=== PATIENT | male | born 1985 | race American Indian/Alaskan Native ===

== ENCOUNTER 2017-07-20 18:02 | Emergency (ER) | payer SELFPAY ==
[2017-07-20 18:12] VITALS: BP 153/97
== END 2017-07-20 22:00 | disposition left against medical advice (07) ==
LOC: ED 18:02
DX: J11.1 Influenza due to unidentified influenza virus with other respiratory manifestations (principal); Z53.21 Procedure and treatment not carried out due to patient leaving prior to being seen by health care provider

== ENCOUNTER 2021-05-17 05:47 | Emergency (ER) | payer MEDICARE ==
[2021-05-17 06:54] LABS: Basophils # (Auto) 0.1 K/mm3 (0.0-0.1); Basophils % (Auto) 0.9 % (0.0-1.8); Eosinophils # (Auto) 0.9 K/mm3 (0.0-0.4); Hematocrit 35.5 % (35.5-45.6); Lymphocytes # (Auto) 2.6 K/mm3 (1.2-5.4); Lymphocytes % (Auto) 20.9 % (13.4-35.0); Mean Corpuscular HGB Conc 31 % (32-34); Mean Corpuscular Volume 86 fl (84-94); Monocytes # (Auto) 1.3 K/mm3 (0.0-0.8); Monocytes % (Auto) 10.8 % (0.0-7.3); Platelet Count 295 K/mm3 (140-440); Red Blood Count 4.14 M/mm3 (3.65-5.03); Red Cell Distribution Width 18.7 % (13.2-15.2)
--- NOTE | 2021-05-17 06:55 | Emergency Department Report ---
ED General Adult HPI - General Chief complaint: Recheck/Abnormal Lab/Rx Stated complaint: LOW POTASSIUM Time Seen by Provider: 05/17/21 06:23 Source: patient Mode of arrival: Ambulatory Limitations: No Limitations - History of Present Illness Initial comments: 35-year-old male with a past medical history hypertension, ESRD on dialysis Tuesday, Tuesday presents to the hospital with complaints of feeling like his potassium is low. Patient admits he does not know if it is low or high. He states he has felt this way in the past due to previous potassium abnormalities. Complains of generalized paresthesias and "feeling bad" with shortness of breath. Patient recent started a new job and therefore only received one half of his scheduled dialysis on Tuesday or Tuesday. This prior Tuesday he did receive a complete dialysis session. He also has a secondary complaint of pain secondary to a cyst on his scrotum for the past 5 days. Pain is worse with palpation. No fever or drainage reported. Patient had a similar cyst removed surgically at [facility] and states that pathology revealed that it was "a cow cyst". Patient's mechanical laboratory technician is Dr. Goldberg associated with [facility] - Related Data Home Medications Medication Instructions Recorded Confirmed Last Taken amLODIPine 10 mg PO DAILY 12/06/19 12/06/19 12/05/19 carvediloL [Coreg] 25 mg PO BID 12/06/19 12/06/19 12/05/19 Previous Rx's Medication Instructions Recorded Last Taken Type Apixaban [Eliquis] 2.5 mg PO Q12H #14 12/13/19 Unknown Rx predniSONE 10 mg PO .TAPER #21 tab 12/13/19 Unknown Rx Allergies Allergy/AdvReac Type Severity Reaction Status Date / Time No Known Allergies Allergy Verified 12/06/19 01:43 ED Review of Systems ROS: Stated complaint: LOW POTASSIUM Other details as noted in HPI Comment: All other systems reviewed and negative ED Past Medical Hx - Past Medical History Previous Medical History?: Yes Hx Hypertension: Yes Hx Renal Disease: Yes Additional medical history: Kidney failure with kidney transplat, COVID 19 - Surgical History Past Surgical History?: Yes Additional Surgical History: Kidney transplant - Social History Smoking Status: Never Smoker Substance Use Type: Alcohol - Medications Home Medications: Home Medications Medication Instructions Recorded Confirmed Last Taken Type amLODIPine 10 mg PO DAILY 12/06/19 12/06/19 12/05/19 History carvediloL [Coreg] 25 mg PO BID 12/06/19 12/06/19 12/05/19 History Apixaban [Eliquis] 2.5 mg PO Q12H #14 12/13/19 Unknown Rx predniSONE 10 mg PO .TAPER #21 tab 12/13/19 Unknown Rx ED Physical Exam - General Limitations: No Limitations - Other Other exam information: General: No acute distress Head: Atraumatic Eyes: normal appearance ENT: Moist mucous membranes Neck: Normal appearance, no midline tenderness Chest: Clear to auscultation bilaterally, right chest wall dialysis port CV: Regular rate and rhythm Abdomen: Soft, normal bowel sounds, nontender, nondistended, no rebound or guarding : No penile lesions, no testicular tenderness. Patient has a tender whitish approximately 3 mm tender papule/swelling at middle posterior inferior aspect of his scrotum without erythema, warmth, or drainage. ? Sebaceous cyst Back: Normal inspection Extremity: Normal inspection, full range of motion Neuro: Alert O x 3, no facial asymmetry, speech clear, no gross motor sensory deficit Psych: Appropriate behavior Skin: No rash ED Course Vital Signs 05/17/21 05/17/21 05:52 09:17 Temperature 98.6 F Pulse Rate 109 H 107 H Respiratory 18 16 Rate Blood Pressure 175/127 Blood Pressure 198/121 [Left] O2 Sat by Pulse 98 97 Oximetry ED Medical Decision Making - Lab Data Result diagrams: 05/17/21 06:41 05/17/21 06:41 Lab Results 05/17/21 05/17/21 05/17/21 Range/Units 06:41 06:41 06:41 WBC 12.4 H (4.5-11.0) K/mm3 RBC 4.14 (3.65-5.03) M/mm3 Hgb 11.0 L (11.8-15.2) gm/dl Hct 35.5 (35.5-45.6) % MCV 86 (84-94) fl MCH 27 L (28-32) pg MCHC 31 L (32-34) % RDW 18.7 H (13.2-15.2) % Plt Count 295 (140-440) K/mm3 Lymph % (Auto) 20.9 (13.4-35.0) % [place] % (Auto) 10.8 H (0.0-7.3) % Eos % (Auto) 7.0 H (0.0-4.3) % Baso % (Auto) 0.9 (0.0-1.8) % Lymph # (Auto) 2.6 (1.2-5.4) K/mm3 [place] # (Auto) 1.3 H (0.0-0.8) K/mm3 Eos # (Auto) 0.9 H (0.0-0.4) K/mm3 Baso # (Auto) 0.1 (0.0-0.1) K/mm3 Seg Neutrophils % 60.4 (40.0-70.0) % Seg Neutrophils # 7.5 (1.8-7.7) K/mm3 Sodium 141 (137-145) mmol/L Potassium 5.4 H (3.6-5.0) mmol/L Chloride 102.6 (98-107) mmol/L Carbon Dioxide 21 L (22-30) mmol/L Anion Gap 23 mmol/L BUN 52 H (9-20) mg/dL Creatinine 18.3 H (0.8-1.3) mg/dL Estimated GFR 4 ml/min BUN/Creatinine Ratio 3 % Glucose 94 (75-100) mg/dL Calcium 9.4 (8.4-10.2) mg/dL Magnesium 2.40 H (1.7-2.3) mg/dL Total Bilirubin 0.30 (0.1-1.2) mg/dL AST 12 (5-40) units/L ALT 7 (7-56) units/L Alkaline Phosphatase 64 (35-129) units/L Total Protein 8.4 H (6.3-8.2) g/dL Albumin 4.6 (3.9-5) g/dL Albumin/Globulin Ratio 1.2 % - EKG Data -: EKG Interpreted by Pr EKG shows normal: sinus rhythm, intervals (intervals normal), QRS complexes (qrsd 91), ST-T waves (peak t waves) Rate: tachycardia (115) - Radiology Data Radiology results: report reviewed (cxr: atelectasis) - Medical Decision Making 35-year-old male presents to the hospital with dialysis noncompliance and mild hyperkalemia. EKG findings of hyperkalemia noted. Patient received Kayexalate. Clonidine provided for hypertension. Patient complains of a small painful scrotal lump similar to his previous cyst that was surgically removed at [facility]. No purulent drainage, erythema, or warmth noted. Case discussed with nephrology on-call Dr. River who recommends admission for dialysis pt eloped after admission Critical Care Time: No Critical care attestation.: If time is entered above; I have spent that time in minutes in the direct care of this critically ill patient, excluding procedure time. ED Disposition Clinical Impression: ESRD (end stage renal disease) on dialysis, Noncompliance of patient with renal dialysis, Hyperkalemia, Scrotal cyst Disposition: 07 LEFT AWOL/ELOPED Is pt being admited?: No Condition: Stable Referrals: PRIMARY CARE, [Primary Care Provider] - 3-5 Days Time of Disposition: 09:11 (DR Lyons )
[2021-05-17 07:13] LABS: Albumin 4.6 g/dL (3.9-5); Calcium 9.4 mg/dL (8.4-10.2)
[2021-05-17] MEDS ORDERED: SODIUM POLYSTYRENE 15 GM/60 ML ORAL LIQD PO ONE (07:33)
--- NOTE | 2021-05-17 07:36 | XRay Report ---
XR chest routine 2V INDICATION / CLINICAL INFORMATION: sob. COMPARISON: 12/06/2019 FINDINGS: SUPPORT DEVICES: Stable right IJ central venous catheter. HEART /PULMONARY VASCULATURE: No significant abnormality. LUNGS / PLEURA: Low lung volumes are present. Mild bibasilar opacities are favored to reflect atelect asis. No sizable pleural effusion. No pneumothorax. ADDITIONAL FINDINGS: No significant additional findings. IMPRESSION: Low lung volumes with bibasilar opacities, likely reflecting volume loss. Otherwise, no acute chest p rocess. Signer Name: Basil Ochoa MD Signed: 05/17/2021 7:31 AM Workstation Name: [id number]
[2021-05-17] MEDS ORDERED: cloNIDine 0.1 MG TAB PO ONE (09:01)
[2021-05-17 09:18] VITALS: BP 198/121
--- NOTE | 2021-05-17 09:43 | Electrocardiograph Report ---
[facility] Test Date: 2021-05-17 Test Time: 06:45:38 Pat Name: KIARA BROWN Department: Room: Gender: M Hospice Coordinator: : 1985 Requested By: JANET DIOR Order Number: [id number] Reading MD: Deo Coffey Measurements Intervals Rose Rate: 115 P: 59 MA: 115 QRS: 69 QRSD: 91 T: 70 QT: 352 QTc: 486 Interpretive Statements Sinus tachycardia Probable left atrial enlargement Probable left ventricular hypertrophy nonspecific st-t No previous ECG available for comparison Electronically Signed On 05-17-2021 9:42:50 EST by Deo Coffey
--- NOTE | 2021-05-17 10:26 | History and Physical Report ---
History of Present Illness Date of examination: 05/17/21 (Patient left AMA before exam) Date of admission: 05/17/2021 Chief complaint: Concern for potassium abnormalities History of present illness: Patient is a 35-year-old male with past medical history of uncontrolled hypertension and ESRD on hemodialysis (MWF) who presented with concerns for potassium abnormalities. Per chart review, the patient endorsed feeling uneasiness that is typically associated with hyperkalemia and/or hypokalemia. The patient endorsed missing multiple sessions of hemodialysis. In the ED the patient was found to have a blood pressure of 198/121, tachycardic to 110, and a potassium of 5.4. The patient was admitted for need for hemodialysis. The patient eloped from the hospital before being examined. Past History Past Medical History: ESRD (On hemodialysis) Past Surgical History: No surgical history (Unable to assess as patient left AMA) Social history: no significant social history (Unable to assess as patient left AMA) Family history: no significant family history (Unable to assess as patient left AMA) Medications and Allergies Allergies Allergy/AdvReac Type Severity Reaction Status Date / Time No Known Allergies Allergy Verified 12/06/19 01:43 Home Medications Medication Instructions Recorded Confirmed Last Taken Type amLODIPine 10 mg PO DAILY 12/06/19 12/06/19 12/05/19 History carvediloL [Coreg] 25 mg PO BID 12/06/19 12/06/19 12/05/19 History Apixaban [Eliquis] 2.5 mg PO Q12H #14 12/13/19 Unknown Rx predniSONE 10 mg PO .TAPER #21 tab 12/13/19 Unknown Rx Active Meds: Active Medications Acetaminophen (Acetaminophen 325 Mg Tab) 650 mg PO Q4H PRN PRN Reason: Pain MILD(1-3)/Fever >100.5/FOX Carvedilol (Carvedilol 6.25 Mg Tab) 12.5 mg PO BID KD Heparin Sodium (Porcine) (Heparin 5,000 Unit/1 Ml Vial) 5,000 unit SUB-Q Q8HR KD Hydralazine HCl (Hydralazine 25 Mg Tab) 50 mg PO BID KD Morphine Sulfate (Morphine 4 Mg/1 Ml Inj) 2 mg IV Q4H PRN PRN Reason: Pain , Severe (7-10) Nifedipine (Nifedipine Xl 60 Mg Tab) 60 mg PO DAILY KD Ondansetron HCl (Ondansetron 4 Mg/2 Ml Inj) 4 mg IV Q8H PRN PRN Reason: Nausea And Vomiting Oxycodone/Acetaminophen (Oxycodone /Acetaminophen 5-325mg Tab) 1 tab PO Q6H PRN PRN Reason: Pain, Moderate (4-6) Sodium Chloride (Sodium Chloride 0.9% 10 Ml Flush Syringe) 10 ml IV BID KD Sodium Chloride (Sodium Chloride 0.9% 10 Ml Flush Syringe) 10 ml IV PRN PRN PRN Reason: LINE FLUSH Review of Systems All systems: negative (Unable to assess as patient left AMA) Exam - Physical Exam Narrative exam: Unable to assess as patient left AMA - Constitutional Vitals: Temp Pulse Resp BP Pulse Ox 98.6 F 107 H 16 198/121 97 05/17/21 05:52 05/17/21 09:17 05/17/21 09:17 05/17/21 09:17 05/17/21 09:17 Results - Labs CBC & Chem 7: 05/17/21 06:41 05/17/21 06:41 Labs: Laboratory Last Values WBC 12.4 K/mm3 (4.5-11.0) H 05/17/21 06:41 RBC 4.14 M/mm3 (3.65-5.03) 05/17/21 06:41 Hgb 11.0 gm/dl (11.8-15.2) L 05/17/21 06:41 Hct 35.5 % (35.5-45.6) 05/17/21 06:41 MCV 86 fl (84-94) 05/17/21 06:41 MCH 27 pg (28-32) L 05/17/21 06:41 MCHC 31 % (32-34) L 05/17/21 06:41 RDW 18.7 % (13.2-15.2) H 05/17/21 06:41 Plt Count 295 K/mm3 (140-440) 05/17/21 06:41 Lymph % (Auto) 20.9 % (13.4-35.0) 05/17/21 06:41 [place] % (Auto) 10.8 % (0.0-7.3) H 05/17/21 06:41 Eos % (Auto) 7.0 % (0.0-4.3) H 05/17/21 06:41 Baso % (Auto) 0.9 % (0.0-1.8) 05/17/21 06:41 Lymph # (Auto) 2.6 K/mm3 (1.2-5.4) 05/17/21 06:41 [place] # (Auto) 1.3 K/mm3 (0.0-0.8) H 05/17/21 06:41 Eos # (Auto) 0.9 K/mm3 (0.0-0.4) H 05/17/21 06:41 Baso # (Auto) 0.1 K/mm3 (0.0-0.1) 05/17/21 06:41 Seg Neutrophils % 60.4 % (40.0-70.0) 05/17/21 06:41 Seg Neutrophils # 7.5 K/mm3 (1.8-7.7) 05/17/21 06:41 Sodium 141 mmol/L (137-145) 05/17/21 06:41 Potassium 5.4 mmol/L (3.6-5.0) H 05/17/21 06:41 Chloride 102.6 mmol/L (98-107) 05/17/21 06:41 Carbon Dioxide 21 mmol/L (22-30) L 05/17/21 06:41 Anion Gap 23 mmol/L 05/17/21 06:41 BUN 52 mg/dL (9-20) H 05/17/21 06:41 Creatinine 18.3 mg/dL (0.8-1.3) H 05/17/21 06:41 Estimated GFR 4 ml/min 05/17/21 06:41 BUN/Creatinine Ratio 3 % 05/17/21 06:41 Glucose 94 mg/dL (75-100) 05/17/21 06:41 Calcium 9.4 mg/dL (8.4-10.2) 05/17/21 06:41 Magnesium 2.40 mg/dL (1.7-2.3) H 05/17/21 06:41 Total Bilirubin 0.30 mg/dL (0.1-1.2) 05/17/21 06:41 AST 12 units/L (5-40) 05/17/21 06:41 ALT 7 units/L (7-56) 05/17/21 06:41 Alkaline Phosphatase 64 units/L (35-129) 05/17/21 06:41 Total Protein 8.4 g/dL (6.3-8.2) H 05/17/21 06:41 Albumin 4.6 g/dL (3.9-5) 05/17/21 06:41 Albumin/Globulin Ratio 1.2 % 05/17/21 06:41 Assessment and Plan Assessment and plan: Unable to assess as patient left AMA. Advance Directives: No VTE prophylaxis?: Chemical Plan of care discussed with patient/family: No
[2021-05-17] MEDS ORDERED: MORPHINE 4 MG/1 ML INJ IV PRN (11:00)
[2021-05-17] MEDS ORDERED: carvediloL 6.25 MG TAB PO SCH (11:00)
[2021-05-17] MEDS ORDERED: ONDANSETRON 4 MG/2 ML INJ IV PRN (11:00)
[2021-05-17] MEDS ORDERED: ACETAMINOPHEN 325 MG TAB PO PRN (11:00)
[2021-05-17] MEDS ORDERED: hydrALAZINE 25 MG TAB PO SCH (11:00)
[2021-05-17] MEDS ORDERED: oxyCODONE /ACETAMINOPHEN 5-325MG TAB PO PRN (11:00)
[2021-05-17] MEDS ORDERED: NIFEdipine XL 60 MG TAB PO SCH (11:00)
--- NOTE | 2021-05-17 13:57 | Discharge Summary ---
Providers - Providers Date of Admission: 05/17/2021 Date of discharge: 05/17/21 Attending physician: Dr. Gabriela Callaway 05/17/21 09:05 Consult to Physician [CONS] Urgent Comment: Consulting Provider: SYD CABA Physician Instructions: Reason For Exam: esrd, hyperkalemia Primary care physician: RO[facility] Hospitalization Reason for admission: Need for emergent hemodialysis Condition: Stable Pertinent studies: None. Procedures: None. Hospital course: Patient is a 35-year-old male with past medical history of uncontrolled hypertension and ESRD on hemodialysis (MWF) who presented with concerns for potassium abnormalities. Per chart review, the patient endorsed feeling uneasiness that is typically associated with hyperkalemia and/or hypokalemia. The patient endorsed missing multiple sessions of hemodialysis. In the ED the patient was found to have a blood pressure of 198/121, tachycardic to 110, and a potassium of 5.4. The patient was admitted for need for hemodialysis. The patient eloped from the hospital before being examined. Disposition: 07 LEFT AWOL/ELOPED Final Discharge Diagnosis (Prints w/discharge instructions): ESRD on hemodialysis, uncontrolled hypertension, hyperkalemia, tachycardia Time spent for discharge: 20 min Core Measure Documentation - Palliative Care Palliative Care/ Comfort Measures: Not Applicable - Core Measures Any of the following diagnoses?: none - VTE Discharge Requirements Deep Vein Thrombosis/Pulmonary Embolism Present on Admission: No Has pt received <5 days of overlap therapy or INR<2.0: No Anticoagulant overlap therapy prescribed at discharge: No Contraindication No Overlap Therapy order at DC: Not Indicated - Acute SC Discharge Requirements Aspirin at discharge: No Reason for no aspirin on DC: Medical contraindication (Not indicated) COLBY/ARB for LVSD if EF <40%: Not Applicable Reason for no COLBY/ARB: Renal impairment Beta jannet at discharge: No Reason for no beta jannet on DC: Patient refusal (Patient left AMA) Statin for LDL = or >100 mg/dl on DC: Not Applicable - Heart Failure Discharge Requirements COLBY/ARB for LVSD if EF <40%: Not Applicable Beta jannet at discharge: No Reason for no beta jannet on DC: Patient refusal (Patient left AMA) - Stroke Discharge Requirements Statin for LDL = or >70 mg/dl on DC: Not Applicable Anticoag for atrial fib/atrial flutter: Not Applicable Antithrombotic for ischemic stroke: No Reason for no antithrombotic on DC: Not Indicated Exam - Physical Exam Narrative exam: Unable to assess as patient left AMA - Constitutional Vitals: Temp Pulse Resp BP Pulse Ox 98.6 F 107 H 16 198/121 97 05/17/21 05:52 05/17/21 09:17 05/17/21 09:17 05/17/21 09:17 05/17/21 09:17 Plan Activity: no restrictions Diet: renal Care Plan Goals: Patient left AMA. Assessment: Patient is a 35-year-old male with past medical history of uncontrolled hypertension and ESRD on hemodialysis (MWF) who presented with concerns for pota ssium abnormalities. Per chart review, the patient endorsed feeling uneasiness that is typically associated with hyperkalemia and/or hypokalemia. The patient endorsed missing multiple sessions of hemodialysis. In the ED the patient was found to have a blood pressure of 198/121, tachycardic to 110, and a potassium of 5.4. The patient was admitted for need for hemodialysis. The patient eloped from the hospital before being examined. Follow up with: OANH CHEW MD [Primary Care Provider] - 3-5 Days
[2021-05-17] MEDS ORDERED: HEPARIN 5,000 UNIT/1 ML VIAL SUB-Q SCH (14:00)
== END 2021-05-17 10:35 | disposition left against medical advice (07) ==
LOC: ED 05:47
DX: I12.0 Hypertensive chronic kidney disease with stage 5 chronic kidney disease or end stage renal disease (principal); N18.6 End stage renal disease; Z99.2 Dependence on renal dialysis; Z91.15 Patient's noncompliance with renal dialysis; E87.5 Hyperkalemia; L72.9 Follicular cyst of the skin and subcutaneous tissue, unspecified; N17.9 Acute kidney failure, unspecified; Z94.0 Kidney transplant status
CPT/HCPCS: 36415; 71046; 80053; 83735; 85025; 93005

== ENCOUNTER 2021-06-22 21:45 | Observation (INO) | payer MEDICARE ==
[2021-06-22] MEDS ORDERED: LIDOCAINE (1%) 10 MG/1 ML VIAL 20 ML MDV ONE (21:48)
[2021-06-22 22:09] LABS: Hematocrit 33.3 % (35.5-45.6); Hemoglobin 10.5 gm/dl (11.8-15.2); Mean Corpuscular HGB Conc 32 % (32-34); Mean Corpuscular Volume 84 fl (84-94); Platelet Count 363 K/mm3 (140-440); Red Blood Count 3.97 M/mm3 (3.65-5.03); Red Cell Distribution Width 17.6 % (13.2-15.2)
--- NOTE | 2021-06-22 22:27 | Emergency Department Report ---
- General Chief complaint: Extremity Injury, Lower Stated complaint: ARTERIAL BLEED PUI?: No Time Seen by Provider: 06/22/21 22:16 Source: patient Mode of arrival: Wheelchair Limitations: No Limitations - History of Present Illness Initial comments: Chief complaint: Bleeding from dialysis access 35-year-old male with a history of end-stage renal disease on hemodialysis for 2 years Patient also has history of hypertension restless leg syndrome CVA. For the last 2 hours he bleeding from the left thigh. He has new arteriovenous hemodialysis access in the left thigh. He had full dialysis session today. He presents via private auto with dizziness weakness. He feels that he is going to faint. He feels that he does not have a heart attack. Copious amount of red blood. AV access surgery occurred 3 weeks ago. Has been accessed for the last 2 weeks. He receives dialysis at [facility]. His photo mask processor is Dr. Goldberg. His vascular surgeon is Dr. Anna. AV access surgery occurred at [facility]. Medications include hydralazine and aspirin. Patient has left thigh AV access because he did not want fistula or graft in his arms. This is patient's first AV access. Complaint: generalized weakness Location: generalized Severity: severe Severity scale (0 -10): 10 Quality: constant Consistency: constant Improves with: none Worsens with: none Context: other (ESRD) Associated Symptoms: other (weakness, near syncope) - Related Data Home Medications Medication Instructions Recorded Confirmed Last Taken amLODIPine 10 mg PO DAILY 12/06/19 05/18/21 12/05/19 carvediloL [Coreg] 25 mg PO BID 12/06/19 05/18/21 12/05/19 Ferric Citrate (Nf) [Auryxia] 420 mg PO BID 05/18/21 05/18/21 Unknown Ferric Citrate (Nf) [Auryxia] 840 mg PO TIDWM 05/18/21 05/18/21 Unknown hydrALAZINE [Apresoline TAB] 10 mg PO BID 05/18/21 05/18/21 Unknown Allergies Allergy/AdvReac Type Severity Reaction Status Date / Time No Known Allergies Allergy Verified 05/18/21 15:29 ED Review of Systems ROS: Stated complaint: ARTERIAL BLEED Other details as noted in HPI Comment: All other systems reviewed and negative Constitutional: malaise. denies: chills, fever Respiratory: denies: cough, shortness of breath Cardiovascular: denies: chest pain ED Past Medical Hx - Past Medical History Previous Medical History?: Yes Hx Hypertension: Yes Hx Renal Disease: Yes (HD q. M, W, TH) Additional medical history: Kidney failure with kidney transplat, COVID 19 - Surgical History Past Surgical History?: Yes Additional Surgical History: Kidney transplant, AV access created 3 weeks - Social History Smoking Status: Never Smoker Substance Use Type: None (Denies illicit drug use) - Medications Home Medications: Home Medications Medication Instructions Recorded Confirmed Last Taken Type amLODIPine 10 mg PO DAILY 12/06/19 05/18/21 12/05/19 History carvediloL [Coreg] 25 mg PO BID 12/06/19 05/18/21 12/05/19 History Ferric Citrate (Nf) [Auryxia] 420 mg PO BID 05/18/21 05/18/21 Unknown History Ferric Citrate (Nf) [Auryxia] 840 mg PO TIDWM 05/18/21 05/18/21 Unknown History hydrALAZINE [Apresoline TAB] 10 mg PO BID 05/18/21 05/18/21 Unknown History ED Physical Exam - General Limitations: No Limitations General appearance: alert, in no apparent distress, other (clammy, diaphoretic) - Head Head exam: Present: atraumatic, normocephalic - Eye Eye exam: Present: normal appearance - ENT ENT exam: Present: mucous membranes moist - Neck Neck exam: Present: normal inspection, full ROM - Respiratory Respiratory exam: Present: normal lung sounds bilaterally. Absent: respiratory distress, wheezes, rales, stridor - Cardiovascular Cardiovascular Exam: Present: regular rate, normal rhythm, tachycardia, normal heart sounds, other (right permacath present). Absent: systolic murmur, diastolic murmur, rubs, gallop - GI/Abdominal GI/Abdominal exam: Present: soft, normal bowel sounds. Absent: distended, te nderness, guarding, rebound - Rectal Rectal exam: Present: deferred - Extremities Exam Extremities exam: Present: other (left thigh: bright red blood spewing in fast stream from puncture wound) - Neurological Exam Neurological exam: Present: alert, oriented X3 - Psychiatric Psychiatric exam: Present: normal affect, normal mood - Skin Skin exam: Present: warm, dry, intact, normal color. Absent: rash ED Course Vital Signs 06/22/21 06/23/21 21:46 01:10 Temperature 98.0 F Pulse Rate 105 H 98 H Respiratory 18 18 Rate Blood Pressure 133/86 146/107 [Right] O2 Sat by Pulse 96 99 Oximetry - Reevaluation(s) Reevaluation #1: 06/22/21 22:31 I spoke with interventional vascular specialist Dr. Gutierrez who will evaluate and treat patient in the [facility] in the morning. He recommended n.p.o. status. Spoke with admitting hospitalist Dr. Romano Reevaluation #2: 06/22/21 23:12 I reassessed patient. He informed me that the right-sided chest permacath is functional. He does not have any bleeding at the AV access site. He is currently asymptomatic. I informed patient of treatment plan to be evaluated and managed in the [facility] in the morning. Reevaluation #3: 06/23/21 00:26 No current bleeding. Patient is currently normotensive. Reevaluation #4: 06/23/21 01:16 I was informed by nurse that patient left AGAINST MEDICAL ADVICE. - Laceration /Wound Repair Left Anterior Medial Thigh Wound Location: lower extremity Betadine Prep?: No Anesthesia: 1% Lidocaine Volume Anesthetic (ccs): 3 Suture Size/Type: 3:0 Number of Sutures: 6 Sterile Dressing Applied?: No Progress: Under emergent conditions, 6 sutures of 3-0 Vicryl, 2 pursestring sutures providing hemostasis at the left medial thigh AV access. I held pressure for approximately 30 minutes while my colleagues inserted sutures for hemostasis. Prior to hemostasis, puncture wound spewing a fast stream of bright red blood with enough pressure to cross the room. ED Medical Decision Making - Lab Data Result diagrams: 06/22/21 22:02 - Medical Decision Making Significant hemorrhage from left thigh arteriovenous hemodialysis access. Patient required significant intervention for hemostasis. I held pressure for 30 minutes while my 2 colleagues inserted sutures. Hemostasis required significant intervention. I spoke with Dr. Gagan Gutierrez who recommended patient to be NPO. He will take the patient to the [facility] in the morning for revision. Spoke with Dr. Romano admitting hospitalist. Patient is currently normotensive. Work-up notable for leukocytosis attributed to stress demargination PTT significantly elevated 81 suspect heparin therapy. During dialysis as the cause. Admitted to telemetry in fair condition. Critical Care Time: Yes Critical care time in (mins) excluding proc time.: 40 Critical care attestation.: If time is entered above; I have spent that time in minutes in the direct care of this critically ill patient, excluding procedure time. 40 minutes of critical care time excluding procedures were used in the care of the patient. I was asked pulmonology to evaluate patient. Patient was in wheelchair triage area. Charge nurse multiple team members holding pressure to the left leg. Tourniquet applied to the superior thigh. I escorted patient to monitored room. Continue to hold pressure while my colleague inserted sutures for hemostasis. I reviewed electronic record. Patient required multiple interventions and reassessments. I spoke with multiple consultants regarding patient's care including hospitalist and interventional vascular specialist. ED Disposition Clinical Impression: Hemorrhage of hemodialysis arteriovenous fistula of left thigh Disposition: 07 LEFT AGAINST MEDICAL ADVICE Is pt being admited?: Yes Does the pt Need Aspirin: No Condition: Stable
[2021-06-22] MEDS ORDERED: SODIUM CHLORIDE 0.9% 500 ML 500 ML IV ONE (22:29)
[2021-06-22] MEDS ORDERED: ONDANSETRON 4 MG/2 ML INJ IV PRN (22:32)
[2021-06-22] MEDS ORDERED: MORPHINE 2 MG/1 ML INJ IV PRN (22:32)
[2021-06-22] MEDS ORDERED: ACETAMINOPHEN 325 MG TAB PO PRN (22:32)
[2021-06-22] MEDS ORDERED: HYDROmorphone 1 MG/1 ML INJ IV PRN (22:32)
[2021-06-22] MEDS ORDERED: ALBUTEROL 2.5 MG/3 ML NEBU IH PRN (22:32)
[2021-06-22 22:43] LABS: Basophils % (Manual) 0 % (0.0-1.8); Total Cells Counted 100
[2021-06-22 22:44] LABS: Hypochromasia Few; Large Platelets Few; Ovalocytes Few; Platelet Estimate Consistent w Auto; Schistocytes Rare
--- NOTE | 2021-06-22 22:47 | History and Physical Report ---
History of Present Illness Date of examination: 06/22/21 Date of admission: 06/22/21 Chief complaint: Bleeding from dialysis access/AV fistula History of present illness: 35-year-old male with a history of end-stage renal disease on hemodialysis for 2 years, hypertension, restless leg syndrome and CVA was brought to the emergency room because patient is bleeding from the left thigh AV fistula for the last 2 hours. Patient has new arteriovenous hemodialysis access in the left thigh. He had full dialysis session today. He presents via private auto with dizziness weakness. He feels that he is going to faint. He feels that he does not have a heart attack. Copious amount of red blood. AV access surgery occurred 3 weeks ago. Has been accessed for the last 2 weeks. He receives dialysis at [facility]. His acetone button paster is Dr. Goldberg. His vascular surgeon is Dr. Anna. AV access surgery occurred at [place]. In the emergency room patient's bleeding was stopped with 6 sutures by emergency room physician. Subsequently case discussed with interventional vascular specialist Dr. Gutierrez who will evaluate and treat patient in the [facility] in the morning and recommended n.p.o. status. Past History Past Medical History: ESRD (Kidney transplant, COVID-19), hypertension, renal failure Medications and Allergies Allergies Allergy/AdvReac Type Severity Reaction Status Date / Time No Known Allergies Allergy Verified 05/18/21 15:29 Home Medications Medication Instructions Recorded Confirmed Last Taken Type amLODIPine 10 mg PO DAILY 12/06/19 05/18/21 12/05/19 History carvediloL [Coreg] 25 mg PO BID 12/06/19 05/18/21 12/05/19 History Ferric Citrate (Nf) [Auryxia] 420 mg PO BID 05/18/21 05/18/21 Unknown History Ferric Citrate (Nf) [Auryxia] 840 mg PO TIDWM 05/18/21 05/18/21 Unknown History hydrALAZINE [Apresoline TAB] 10 mg PO BID 05/18/21 05/18/21 Unknown History Active Meds: Active Medications Acetaminophen (Acetaminophen 325 Mg Tab) 650 mg PO Q4H PRN PRN Reason: Pain MILD(1-3)/Fever >100.5/FOX Albuterol (Albuterol 2.5 Mg/3 Ml Nebu) 2.5 mg IH Q4HRT PRN PRN Reason: Shortness Of Breath Albuterol/Ipratropium (Ipratropium/Albuterol Sulfate 3 Ml Ampul.Neb) 1 ampul IH Q6HRT [facility] Amlodipine Besylate (Amlodipine 10 Mg Tab) 10 mg PO DAILY [facility] Carvedilol (Carvedilol 25 Mg Tab) 25 mg PO BID [facility] Famotidine (Famotidine 20 Mg/2 Ml Inj) 20 mg IV BID [facility] Hydralazine HCl (Hydralazine 10 Mg Tab) 10 mg PO BID [facility] Hydromorphone HCl (Hydromorphone 1 Mg/1 Ml Inj) 0.5 mg IV Q3H PRN PRN Reason: Pain , Severe (7-10) Sodium Chloride (Nacl 0.9% 500 Ml) 500 mls @ 999 mls/hr IV ONCE ONE Stop: 06/22/21 22:59 Miscellaneous Medication (Ferric Citrate (Nf)) 420 mg PO BID [facility] Morphine Sulfate (Morphine 2 Mg/1 Ml Inj) 2 mg IV Q4H PRN PRN Reason: Pain, Moderate (4-6) Ondansetron HCl (Ondansetron 4 Mg/2 Ml Inj) 4 mg IV Q8H PRN PRN Reason: Nausea And Vomiting Sodium Chloride (Sodium Chloride 0.9% 10 Ml Flush Syringe) 10 ml IV BID KD Sodium Chloride (Sodium Chloride 0.9% 10 Ml Flush Syringe) 10 ml IV PRN PRN PRN Reason: LINE FLUSH Review of Systems All systems: negative Constitutional: other (Bleeding from AV fistula left thigh) Exam - Constitutional Vitals: Temp Pulse Resp BP Pulse Ox 105 H 18 133/86 96 06/22/21 21:46 06/22/21 21:46 06/22/21 21:46 06/22/21 21:46 General appearance: Present: no acute distress, well-nourished - EENT Eyes: Present: PERRL ENT: hearing intact, clear oral mucosa - Neck Neck: Present: supple, normal ROM - Respiratory Respiratory effort: normal Respiratory: bilateral: CTA - Cardiovascular Heart Sounds: Present: S1 & S2. Absent: rub, click - Extremities Extremities: pulses symmetrical, No edema Extremity abnormal: other (Bleeding from AV fistula in the left thigh) Peripheral Pulses: within normal limits - Abdominal General gastrointestinal: Present: soft, non-tender, non-distended, normal bowel sounds Male genitourinary: Present: normal - Integumentary Integumentary: Present: clear, warm, dry - Musculoskeletal Musculoskeletal: gait normal, strength equal bilaterally - Psychiatric Psychiatric: appropriate mood/affect, intact judgment & insight - Neurologic Neurologic: CNII-XII intact, moves all extremities Results - Labs CBC & Chem 7: 06/22/21 22:02 Labs: Laboratory Last Values WBC 19.9 K/mm3 (4.5-11.0) H 06/22/21 22: RBC 3.97 M/mm3 (3.65-5.03) 06/22/21 22: Hgb 10.5 gm/dl (11.8-15.2) L 06/22/21: Hct 33.3 % (35.5-45.6) L 06/22/21: MCV 84 fl (84-94) 06/22/21: MCH 26 pg (28-32) L 06/22/21: MCHC 32 % (32-34) 06/22/21 22: RDW 17.6 % (13.2-15.2) H 06/22/21 22: Plt Count 363 K/mm3 (140-440) 06/22/21: Lymph # (Auto) [employer] 06/22/21 22: Assessment and Plan VTE prophylaxis?: Mechanical Plan of care discussed with patient/family: Yes - Patient Problems (1) Hemorrhage of hemodialysis arteriovenous fistula of left thigh Current Visit: Yes Status: Acute Plan to address problem: Admit the patient to the medical floor. NPO. Pepcid 20 mg IV every 12 hours. We will continue the home medication. Reconsult vascular surgeon for repair of AV fistula in the morning. Recheck CBC BMP in the morning. Will monitor closely for bleeding (2) ESRD (end stage renal disease) on dialysis Current Visit: No Status: Acute Plan to address problem: Patient just finished hemodialysis today. We consult acetone button paster for hemodial ysis. Recheck BMP in the morning (3) COVID-19 Current Visit: No Status: Acute Plan to address problem: Stable. Oxygen high nasal cannula 3 taper minute. DuoNeb nebulizer every 4 hours. We will monitor the patient closely (4) CVA (cerebral vascular accident) Current Visit: No Status: Acute Plan to address problem: Stable. We will continue the home medication. Monitor the patient closely (5) DVT prophylaxis Current Visit: No Status: Acute Plan to address problem: SCD for DVT prophylaxis because of bleeding. Pepcid 20 mg IV every 12 hours for GI prophylaxis. (6) Full code status Current Visit: No Status: Acute Plan to address problem: Patient is a full code
[2021-06-22 23:10] LABS: INR 1.01 (0.87-1.13)
[2021-06-22 23:14] LABS: Partial Thromboplastin Time 81.1 Sec. (24.2-36.6)
[2021-06-23 01:04] LABS: Calcium 8.3 mg/dL (8.4-10.2)
[2021-06-23 01:12] VITALS: BP 146/107
[2021-06-23] MEDS ORDERED: IPRATROPIUM/ALBUTEROL SULFATE 3 ML AMPUL.NEB IH SCH (02:00)
[2021-06-23] MEDS ORDERED: carvediloL 25 MG TAB PO SCH (08:00)
[2021-06-23] MEDS ORDERED: FAMOTIDINE 20 MG/2 ML INJ IV SCH (10:00)
[2021-06-23] MEDS ORDERED: amLODIPine 10 MG TAB PO SCH (10:00)
[2021-06-23] MEDS ORDERED: NON-FORMULARY EACH (Ferric Citrate (Nf) 210 MG Tablet) PO SCH (10:00)
[2021-06-23] MEDS ORDERED: hydrALAZINE 10 MG TAB PO SCH (10:00)
== END 2021-06-23 01:10 | disposition left against medical advice (07) ==
LOC: ED 21:45 → 4A 22:29
PROVIDERS: ADMIT Hospitalist; ATTEND Hospitalist
DX: T82.838A Hemorrhage due to vascular prosthetic devices, implants and grafts, initial encounter (principal); I63.9 Cerebral infarction, unspecified; I12.0 Hypertensive chronic kidney disease with stage 5 chronic kidney disease or end stage renal disease; N18.6 End stage renal disease; G25.81 Restless legs syndrome; R55 Syncope and collapse; Z79.899 Other long term (current) drug therapy; Z98.890 Other specified postprocedural states; Z86.16 Personal history of COVID-19
CPT/HCPCS: 36415; 80048; 85025; 85610; 85730; 86850; 86900; 86901; 99291; G0378; J3490; J7040; 85007